=== PATIENT | male | born 2000 ===

== ENCOUNTER → 2024-06-30 | Outpatient (REF) | payer OTHER | LOC: M LAB REF 16:20 | PROVIDERS: ATTEND Nurse Practitioner Family | DX: J06.9 Acute upper respiratory infection, unspecified (principal) ==

== ENCOUNTER → 2024-06-30 | Outpatient (CLI) | payer OTHER ==
[2024-06-30 19:04] LABS: MONO REFLEX EBV VCA IgM NEGATIVE (NEGATIVE)
== END ==
LOC: M WUC 13:29
PROVIDERS: ATTEND Nurse Practitioner Family
DX: B27.00 Gammaherpesviral mononucleosis without complication (principal); R50.9 Fever, unspecified